=== PATIENT | female | born 1990 | race Caucasian/White ===

== ENCOUNTER 2018-11-10 07:57 | Day surgery (SDC) | payer BC ==
[2018-11-10] MEDS ORDERED: MIDAZOLAM 1 MG/ML 2 ML INJ ×3 (10:31)
[2018-11-10] MEDS ORDERED: FENTAnyl 50 MCG/ML VIAL (10:31)
== END 2018-11-10 12:07 | disposition home or self-care (01) ==
LOC: GIL 07:57
DX: K92.1 Melena (principal); D12.5 Benign neoplasm of sigmoid colon; K64.4 Residual hemorrhoidal skin tags
CPT/HCPCS: 45380; 84703; 88305